=== PATIENT | male | born 1970 | race Caucasian/White ===

== ENCOUNTER 2018-01-02 19:50 | Emergency (ER) | payer BC ==
--- NOTE | 2018-01-02 20:41 | RAD ---
THREE VIEWS OF THE RIGHT FOOT: 01/02/18 COMPARISON: None. HISTORY: Fall, trauma, pain. FINDINGS: No fracture or evidence of dislocation is noted. IMPRESSION: No acute osseous abnormality. POS: [facility]
== END 2018-01-02 20:35 | disposition home or self-care (01) ==
LOC: NAV ERS 19:50
DX: S93.601A Unspecified sprain of right foot, initial encounter (principal); E03.9 Hypothyroidism, unspecified; I10 Essential (primary) hypertension; Z87.891 Personal history of nicotine dependence; Z79.899 Other long term (current) drug therapy; W20.8XXA Other cause of strike by thrown, projected or falling object, initial encounter

== ENCOUNTER 2018-11-28 07:58 | Outpatient (CLI) | payer BC ==
--- NOTE | 2018-11-28 10:00 | ULT ---
ABDOMINAL ULTRASOUND COMPLETE: Date: 11/28/18 HISTORY: Abnormal increased LFTs, hemangioma seen on prior health screen ultrasound. FINDINGS: No significant hepatomegaly. Slight coarse liver echogenicity throughout. There appear to be three ci rcumscribed hyperechoic foci within the liver measuring up to approximately 3.5 x 3.9 cm. These certa inly could be consistent with multiple benign hemangiomas. However, if there is any clinical concern for liver metastatic disease, follow-up abdomen and pelvic CT scan with and without IV contrast with liver mass/hemangioma protocol is recommended for further assessment. The gallbladder shows no evidence of gallstones, wall thickening, or pericholecystic fluid. Common bi le duct 0.6 cm. Pancreas, IVC, aorta, and spleen are unremarkable. Kidneys show no hydronephrosis. No abscess or abnormal fluid collection. IMPRESSION: 1. Slightly coarse liver echogenicity, evidence for nonspecific diffuse hepatic parenchymal process. 2. Multiple hyperechoic circumscribed foci statistically most likely benign cavernous hemangiomas up to 3.5 x 3.9 cm. If there is any clinical concern for liver metastatic disease, additional imaging as above is recomme nded. POS: OFF
== END 2018-11-28 07:59 | disposition home or self-care (01) ==
LOC: NAV ULT 07:58
PROVIDERS: ATTEND Family Medicine
DX: R74.8 Abnormal levels of other serum enzymes (principal); R93.2 Abnormal findings on diagnostic imaging of liver and biliary tract
CPT/HCPCS: 76700

== ENCOUNTER 2019-01-05 22:35 | Emergency (ER) | payer BC ==
--- NOTE | 2019-01-05 23:06 | RAD ---
1 view chest: CLINICAL HISTORY: Atrial fibrillation COMPARISON: None FINDINGS: There is no focal consolidation, effusion, or pneumothorax. Cardiac silhouette is normal in size. No acute osseous abnormality. IMPRESSION: No focal consolidation.
[2019-01-05 23:12] LABS: Band 16 % (5-11); Eosinophils 1 % (0-10); Hemoglobin 16.6 g/dL (14.0-18.0); Lymphocytes 16 % (21-51); MDiff Complete? YES; Mean Corpuscular HGB CONC 33.1 g/dL (32.0-36.0); Mean Corpuscular Hemoglobin 29.9 pg (27.0-31.0); Mean Corpuscular Volume 90.2 fL (78.0-98.0); Mean Platelet Volume 7.5 fL (7.4-10.4); Monocytes 1 % (0-10); Neutrophil 66 % (42-75); Platelet Count 291 thou/uL (130-400); Platelet Morphology Comment Appears Adequate; RBC Distribution Width 11.6 % (11.5-14.5); RBC Morphology Normal; Red Blood Cell (RBC) Count 5.55 mill/uL (4.70-6.10); White Blood Cell (WBC) Count 10.2 thou/uL (4.8-10.8)
[2019-01-05 23:13] LABS: ALT (SGPT) 26 U/L (8-55); AST (SGOT) 26 U/L (5-34); Albumin 4.2 g/dL (3.5-5.0); Alkaline Phosphatase 102 U/L (40-150); Anion Gap 21 mmol/L (10-20); BUN (Urea Nitrogen) 21 mg/dL (8.9-20.6); Bilirubin, Total 0.5 mg/dL (0.2-1.2); CK (CPK) 250 U/L (30-200); Calc. Creatinine Clearance 0 mL/min (70-130); Calcium 10.1 mg/dL (7.8-10.44); Carbon Dioxide 18 mmol/L (22-29); Chloride 101 mmol/L (98-107); Estimated GFR-MDRD 60; Globulin 3.2 g/dL (2.4-3.5); Glucose 86 mg/dL (70-105); Potassium 4.3 mmol/L (3.5-5.1); Protein, Total 7.4 g/dL (6.0-8.3); Sodium 136 mmol/L (136-145)
[2019-01-05] MEDS ORDERED: Lorazepam 2 MG/ML VIAL ONE (23:53)
[2019-01-06] MEDS ORDERED: Metoprolol Tartrate 5 MG/5 ML VIAL ONE (00:47)
[2019-01-06] MEDS ORDERED: Sodium Chloride 0.9% 500 ML ONE (01:18)
== END 2019-01-06 01:30 | disposition short-term general hospital (02) ==
LOC: NAV ERS 22:35
DX: I48.91 Unspecified atrial fibrillation (principal); E86.0 Dehydration; E03.9 Hypothyroidism, unspecified; I10 Essential (primary) hypertension; Z87.891 Personal history of nicotine dependence; Z79.899 Other long term (current) drug therapy
CPT/HCPCS: 71045; 80053; 82550; 83735; 84443; 84484; 85025; 85730; 93005; 94760; 96361; 96365; 96366; 96375; 96376; J2060; J7050

== ENCOUNTER 2021-04-07 04:05 | Emergency (ER) | payer BC ==
[2021-04-07 04:35] LABS: #Lymphocytes 0.2 thou/uL (1.20-3.40); #Monocytes 0.2 thou/uL (0.11-0.59); %Basophils 0.3 % (0.0-1.0); %Lymphocytes 2.3 % (21.0-51.0); %Monocytes 2.7 % (0.0-10.0); %Neutrophils 94.7 % (42.0-75.0); Hemoglobin 14.9 g/dL (14.0-18.0); Mean Corpuscular HGB CONC 34.8 g/dL (32.0-36.0); Mean Corpuscular Hemoglobin 31.4 pg (27.0-31.0); Mean Corpuscular Volume 90.4 fL (78.0-98.0); Mean Platelet Volume 6.8 fL (7.4-10.4); Platelet Count 251 thou/uL (130-400); Red Blood Cell (RBC) Count 4.76 mill/uL (4.70-6.10); White Blood Cell (WBC) Count 8.4 thou/uL (4.8-10.8)
[2021-04-07] MEDS ORDERED: Dexamethasone 4 mg/ml Vial ONE (04:39)
[2021-04-07] MEDS ORDERED: Sodium Chloride 0.9% 1,000 ML ONE (04:39)
[2021-04-07] MEDS ORDERED: Ondansetron PF 4 MG/2 ML Vial ONE (04:39)
[2021-04-07 04:46] LABS: Bilirubin Negative (Negative); Blood, Urine Negative (Negative); Clarity Clear (Clear); Glucose, Urine (Dipstick) Negative (Negative); Ketone, Urine 15 mg/dL (Negative); Leukocyte Negative (Negative); Nitrite Negative (Negative); Protein, Urine (Dipstick) 100 mg/dL (Neg-Trace); pH, Urine 5.5 (5.0-9.0)
[2021-04-07 04:48] LABS: Specific Gravity, Urine 1.028 (1.002-1.036)
[2021-04-07 04:49] LABS: ALT (SGPT) 28 U/L (8-55); AST (SGOT) 42 U/L (5-34); Albumin 3.5 g/dL (3.5-5.0); Alkaline Phosphatase 70 U/L (40-110); Anion Gap 19 mmol/L (10-20); BUN (Urea Nitrogen) 35 mg/dL (8.4-25.7); Bilirubin, Total 0.6 mg/dL (0.2-1.2); Calc. Creatinine Clearance 0 mL/min (70-130); Calcium 8.4 mg/dL (7.8-10.44); Carbon Dioxide 15 mmol/L (22-29); Chloride 95 mmol/L (98-107); Globulin 2.8 g/dL (2.4-3.5); Glucose 110 mg/dL (70-105); Potassium 4.3 mmol/L (3.5-5.1); Protein, Total 6.3 g/dL (6.0-8.3); Sodium 125 mmol/L (136-145)
[2021-04-07 04:54] LABS: Bacteria/HPF None Seen HPF (None Seen); RBC/HPF None Seen HPF (0-3); Squamous Epithelial 0-3 HPF (0-3); WBC/HPF None Seen HPF (0-3)
[2021-04-07] MEDS ORDERED: Sodium Chloride 0.9% 100 ML ONE (04:55)
[2021-04-07] MEDS ORDERED: cefTRIAXone\\ROCEPHIN 2 GM VIAL ONE (04:55)
[2021-04-07] MEDS ORDERED: Doxycycline 100 MG CAP ONE (05:51)
== END 2021-04-07 06:25 | disposition short-term general hospital (02) ==
LOC: NAV ERS 04:05
DX: U07.1 COVID-19 (principal); A41.9 Sepsis, unspecified organism; J12.82 Pneumonia due to coronavirus disease 2019; E87.1 Hypo-osmolality and hyponatremia; E03.9 Hypothyroidism, unspecified; N28.9 Disorder of kidney and ureter, unspecified; I48.91 Unspecified atrial fibrillation; I10 Essential (primary) hypertension; Z87.891 Personal history of nicotine dependence; Z79.899 Other long term (current) drug therapy
CPT/HCPCS: 36415; 71045; 80053; 81003; 81015; 83605; 84484; 85025; 85379; 87040; 87086; 93005; 94760; 96365; 96374; 96375; J0696; J1100; J2405; J3490; J7050